=== PATIENT | female | born 1980 | race Two or more races ===

== ENCOUNTER → 2019-12-27 10:06 | Outpatient (BNVA) | payer MEDICAID, SELFPAY | PROVIDERS: Visit Provider Advanced Practice Midwife | DX: Z30.42 Encounter for surveillance of injectable contraceptive (principal) | CPT/HCPCS: 99211 ==

== ENCOUNTER 2020-01-30 13:31 | Outpatient (REF) | payer MEDICAID, SELFPAY | END 2020-01-30 13:32 | disposition home or self-care (01) | LOC: HO.LAB 13:31 | PROVIDERS: PCP Internal Medicine; Visit Provider Internal Medicine | DX: Z20.828 Contact with and (suspected) exposure to other viral communicable diseases (principal) | CPT/HCPCS: C9803; U0003 ==

== ENCOUNTER 2020-04-16 08:49 | Outpatient (REF) | payer MEDICAID, SELFPAY | END 2020-04-16 08:50 | disposition home or self-care (01) | LOC: HO.LAB 08:49 | PROVIDERS: Visit Provider Internal Medicine | DX: Z20.822 Contact with and (suspected) exposure to COVID-19 (principal) | CPT/HCPCS: 36415; C9803; U0003; U0005 ==

== ENCOUNTER 2020-05-31 12:44 | Outpatient (REF) | payer MEDICAID, SELFPAY ==
[2020-05-31 13:53] LABS: COVID-19 Test Negative (Negative)
== END 2020-05-31 12:45 | disposition home or self-care (01) ==
LOC: HO.LAB 12:44
PROVIDERS: Visit Provider Internal Medicine
DX: Z20.822 Contact with and (suspected) exposure to COVID-19 (principal)
CPT/HCPCS: 36415; 87635; C9803

== ENCOUNTER → 2020-06-25 11:23 | Outpatient (BNVA) | payer MEDICAID, SELFPAY | PROVIDERS: Visit Provider Advanced Practice Midwife ==

== ENCOUNTER → 2020-06-27 09:03 | Outpatient (BNVA) | payer MEDICAID, SELFPAY | PROVIDERS: Visit Provider Advanced Practice Midwife | DX: Z30.42 Encounter for surveillance of injectable contraceptive (principal) | CPT/HCPCS: 96372; 99211; J1050 ==

== ENCOUNTER 2020-08-09 10:42 | Outpatient (REF) | payer MEDICAID, SELFPAY ==
--- NOTE | ~2020-08-09 | MM_ITS ---
EXAMINATION: MM SCREENING DIGITAL BREAST TOMOSYNTHESIS, BILATERAL CLINICAL INFORMATION: Screening. Asymptomatic. Age 40. No prior breast imaging. Family history breast cancer, paternal grandmother. The lifetime risk of breast cancer based on the Tyrer-Cuzick Model is 10%. COMPARISON: None (current study represents initial baseline exam). TECHNIQUE: Digital breast tomosynthesis is performed in both the craniocaudal and mediolateral oblique views along with computer-aided detection (CAD). Synthesized 2D images are generated from the tomosynthesis. FINDINGS: The breasts are heterogeneously dense, which may obscure small masses (ACR BI-RADS breast composition Category c). There are no significant masses, abnormal calcifications, or other abnormalities. There is incidental low left axillary tail node. The skin contours are smooth. MM/MM tomosynthesis screening BI IMPRESSION: No mammographic evidence of malignancy. ASSESSMENT: BI-RADS 2: Benign RECOMMENDATION: Routine annual mammography screening. This patient's information was entered into a reminder system with a target due date for their next mammogram.
== END 2020-08-09 10:43 | disposition home or self-care (01) ==
LOC: HO.MAMMO 10:42
PROVIDERS: PCP Internal Medicine; Visit Provider Advanced Practice Midwife
DX: Z12.31 Encounter for screening mammogram for malignant neoplasm of breast (principal)
CPT/HCPCS: 77063; 77067

== ENCOUNTER → 2020-11-07 15:29 | Outpatient (BNVA) | payer MEDICAID, SELFPAY | PROVIDERS: PCP Internal Medicine; Visit Provider Advanced Practice Midwife ==

== ENCOUNTER 2020-12-18 10:11 | Outpatient (REF) | payer MEDICAID, SELFPAY ==
--- NOTE | ~2020-12-18 | US_ITS ---
EXAMINATION: US ABDOMEN COMPLETE CLINICAL INFORMATION: Abdominal pain. COMPARISON: None TECHNIQUE: Real-time imaging of the abdominal viscera. FINDINGS: PANCREAS: Normal. ABDOMINAL AORTA: The proximal, mid, and distal segments are normal in caliber. INFERIOR VENA CAVA: Visualized portions are normal. LIVER: The liver is normal in size. The liver contour is normal. Overall increase in echogenicity. Most consistent with fatty change. No focal hepatic lesion. There is no intrahepatic biliary duct dilatation seen. GALLBLADDER: Normal. The gallbladder is physiologically distended without evidence of stones, sludge, polyps, wall thickening or pericholecystic fluid. COMMON BILE DUCT: Normal in caliber measuring 0.3 cm in diameter. RIGHT KIDNEY: Normal. No hydronephrosis. No renal calculi or focal parenchymal lesions. The kidney measures 10.7 cm in maximum dimension. LEFT KIDNEY: Normal. No hydronephrosis. No renal calculi or focal parenchymal lesions. The kidney measures 10.5 cm in maximum dimension. SPLEEN: Normal. The spleen measures 8.8 cm in maximum dimension. FREE FLUID: None. US/US abdomen complete IMPRESSION: No evidence for cholelithiasis or cholecystitis. There is no free fluid. Liver is overall increased echogenicity most consistent with fatty change
== END 2020-12-18 10:12 | disposition home or self-care (01) ==
LOC: HO.US 10:11
PROVIDERS: PCP Internal Medicine; Visit Provider Internal Medicine
DX: R10.9 Unspecified abdominal pain (principal)
CPT/HCPCS: 76700

== ENCOUNTER 2021-05-10 13:16 | Outpatient (REF) | payer MEDICAID, SELFPAY ==
[2021-05-10 14:18] LABS: COVID-19 Test Negative (Negative)
== END 2021-05-10 13:17 | disposition home or self-care (01) ==
LOC: HO.LAB 13:16
PROVIDERS: PCP Internal Medicine; Visit Provider Internal Medicine
DX: Z20.822 Contact with and (suspected) exposure to COVID-19 (principal)
CPT/HCPCS: 87635; C9803

== ENCOUNTER 2021-11-12 13:38 | Outpatient (REF) | payer MEDICAID, SELFPAY ==
[2021-11-13 05:46] LABS: CT PCR NOT DETECTED (Not Detect.); NG PCR NOT DETECTED (Not Detect.)
[2021-11-13 10:15] LABS: BV Int Neg Control Negative (Negative); BV Int Pos Control Positive (Positive)
[2021-11-19 04:46] LABS: HPV 16 RNA DETECTED (NOT DETECTED); HPV mRNA E6/E7 rflx Detected (Not Detected)
== END 2021-11-12 13:39 | disposition home or self-care (01) ==
LOC: HO.LNP 13:38
PROVIDERS: Visit Provider Advanced Practice Midwife
DX: Z01.419 Encounter for gynecological examination (general) (routine) without abnormal findings (principal); Z11.51 Encounter for screening for human papillomavirus (HPV)
CPT/HCPCS: 87480; 87491; 87510; 87591; 87624; 87625; 87660; 88142

== ENCOUNTER → 2021-12-05 09:43 | Outpatient (BNVA) | payer MEDICAID, SELFPAY | PROVIDERS: PCP Internal Medicine; Visit Provider Advanced Practice Midwife | DX: Z30.42 Encounter for surveillance of injectable contraceptive (principal) | CPT/HCPCS: 96372; 99211 ==

== ENCOUNTER 2022-01-31 10:59 | Outpatient (REF) | payer MEDICAID, SELFPAY ==
--- NOTE | ~2022-01-31 | XR_ITS ---
EXAMINATION: XR CHEST CLINICAL INFORMATION: Cough for 4 months. COMPARISON: None TECHNIQUE: 2 views of the chest were obtained. FINDINGS: No hyperinflation. No coarsening bronchiolar markings. There is no lobar or segmental airspace consolidation or effusion. The costophrenic sulci are clear. Small density overlying the anterior medial right first rib may be artifact from costochondral junction and bronchovascular markings. Recommend follow-up frontal view chest with additional apical lordotic view to exclude pulmonary parenchymal opacity. The heart is normal in size. The vascularity is normal. The hilar and mediastinal contours and visualized bony structures are unremarkable. XR/XR chest 2V IMPRESSION: -Small density overlying the anterior medial right first rib possibly artifact from superimposition vascular markings and costochondral junction. Recommend follow-up frontal view chest with additional apical lordotic view to exclude pulmonary parenchymal opacity. -No airspace consolidation or effusion. -No hyperinflation or coarsening bronchiolar markings.
== END 2022-01-31 11:00 | disposition home or self-care (01) ==
LOC: HO.XRAY 10:59
PROVIDERS: Absent Provider Internal Medicine; PCP Internal Medicine; Visit Provider Registered Nurse
DX: R05.3 Chronic cough (principal); F17.210 Nicotine dependence, cigarettes, uncomplicated
CPT/HCPCS: 71046

== ENCOUNTER 2022-02-26 09:29 | Emergency (ER) | payer MEDICAID, SELFPAY ==
--- NOTE | ~2022-02-26 | XR_ITS ---
EXAMINATION: XR CHEST CLINICAL INFORMATION: Cough for greater than 4 months COMPARISON: None TECHNIQUE: 2 views of the chest were obtained. FINDINGS: The heart and pulmonary vessels appear normal. No infiltrates, effusions or suspicious lung masses are seen. Previously seen density at the tip of the right first rib is less apparent on the current study and was probably secondary to superimposition of structures. A similar density is seen at the anterior aspect of the sixth left rib. XR/XR chest 2V IMPRESSION: No acute intrathoracic disease.
[2022-02-26 09:32] VITALS: BP 118/75; PULSE 84; RESP 18; TEMP 36.6; O2SAT 97; BMI 29.9
--- NOTE | 2022-02-26 09:53 | PC.NURSE ---
patient a/ox4 . benito . heart rate regular at 84 beats per minuet . breathing even and unlabored . lungs diminished throughout , very little air movement in lower lobes. patient has history of cigarette smoking . dry non- productive cough . patient reports for 4 months . skin pink warm and dry . abdomen soft , positive bowel sounds in all four quadrants . patient aware of plan of care .
--- NOTE | 2022-02-26 10:07 | ED_ITS ---
HPI - URI/Sore Throat General Chief Complaint: Upper Respiratory Symptoms Stated Complaint: cough x4 months Time Seen by Provider: 02/26/22 09:41 Source: patient and family Mode of arrival: ambulatory Limitations: no limitations History of Present Illness HPI Narrative: 41-year-old female with a history of half a pack per day for roughly 20 years presents emergency department with complaints of a 4 month cough, shortness of breath, and intermittent sore throat. She denies any illness causing the onset of symptoms. She states she was diagnosed with COVID-19 using a home test roughly 1 week ago in which time her cough lessened. She denies any sputum production MD elicited complaint: cough and sore throat Related Data Previous Rx's Medication Instructions Recorded levonorgestrel 1.5 mg tablet (Plan 1.5 mg PO ONCE #1 tab 11/12/21 B One-Step) medroxyprogesterone 150 mg/mL 150 mg IM Q12W #1 mL 11/12/21 intramuscular suspension (Depo-Provera) albuterol sulfate 90 mcg/actuation 1 inh inhalation QID PRN shortness 02/26/22 aerosol inhaler of breath or wheezing #8.5 grams amoxicillin 875 mg-potassium 1 tab PO BID 5 days #10 tabs 02/26/22 clavulanate 125 mg tablet benzonatate 100 mg capsule 100 mg PO TID PRN cough #14 caps 02/26/22 Allergies Allergy/AdvReac Type Severity Reaction Status Date / Time No Known Allergies Allergy Verified 02/26/22 09:36 [No Known Allergies*] [facility] Past Medical History Medical History Herpes Herpes Surgical History No history of previous surgery No history of previous surgery Family History Family History Father Asthma Mother Diabetes mellitus Maternal Grandmother Asthma Paternal Grandmother Breast cancer Paternal Aunt Asthma Father Asthma Mother Diabetes mellitus Maternal Grandmother Asthma Paternal Grandmother Breast cancer Paternal Aunt Asthma Social History Social History (Updated 11/12/21 @ 13:09 by DIANA Dela Cruz) Alcohol intake: never Patient Tobacco Use Status: Current everyday Tobacco user Cigarettes Per Day: 9 Smoked in Last 30 Days: Yes Substance Use Type: Crack/Cocaine Advance Directives: No Advance Directives Information Provided: No Patient : No Gender identity: Female Physical Exam Vital Signs: Vital Signs: Last Vital Signs Temp 97.8 F 02/26/22 09:32 Pulse 84 02/26/22 09:32 Resp 18 02/26/22 09:32 BP 118/75 02/26/22 09:32 Pulse Ox 97 02/26/22 09:32 O2 Del Method 02/26/22 09:32 BMI result Body Mass Index 29.9 Course Course Course Narrative: 1000: Plan to rule out influenza, COVID, and strep. 1050: Serology negative for COVID, influenza a/B, and strep. Chest x-ray negative for acute intrathoracic disease. Medical Decision Making Medical Decision Making [facility] Narrative: 41-year-old female with a history of half a pack per day for roughly 20 years presents emergency department with complaints of a 4 month cough, shortness of breath, and intermittent sore throat. Lung sounds diminished to auscultation, A&O x4, and may be equally with good strength. Serology negative for influenza, COVID, and strep. Chest x-ray negative for intrathoracic disease. History, physical, and diagnostics consistent with bronchitis. Low suspicion for ACS, PE, pneumonia, sepsis. Patient is safe for discharge at this time with plan to manage symptoms the [id number] Tylenol, Motrin, and/or cough/cold medication for relief of symptoms. Plan to for 5 day course of Augmentin and benzonatate capsules for relief of symptoms. HPI, PE, diagnostics, and plan discussed with patient and family with no unanswered questions at this time. Patient educated to return to the emergency department with chest pain, increased shortness of breath, worsening cough, fever despite taking antipyretics, or any other concerning emergent symptoms. Recommended to follow-up with her primary care provider for further treatment and management. *Refer to Course for additional information on consultations, diagnostic interpretation, consultations, emergency department stay, conversations with patient and family, shared decision making with patient, and more information on medical decision making* Lab Data Labs: Lab Results 02/26/22 02/26/22 02/26/22 Range/Units 10:06 10:06 10:10 COVID-19 (JAVIER) Negative (Negative) COVID-19 Clin Com See Note Influenza Type A (CHAU) Negative (Negative) Influenza Type B ([facility]AU) Negative (Negative) Influenza A & B Note See Note S. pyogenes GrpA [facility] Negative (Negative) Discharge Plan Discharge Clinical Impression: Bronchitis Patient Disposition: Home, Self-Care Instructions: Acute Bronchitis (ED), How to Use a Metered-Dose Inhaler (ED), How to Stop Smoking (ED) Additional Instructions: Your throat and nasal swabs are negative for influenza, COVID, strep throat. Your chest x-ray is negative for pneumonia. Your history, physical exam, and diagnostic exams are consistent with chronic bronchitis is you would have cough for greater than 4 weeks. Plan is for a 5 day course of Augmentin, benzonatate capsules for cough, and a rescue inhaler for shortness of breath. Please use these medications as prescribed. You are safe for discharge at this time with plan to manage symptoms the [id number] Tylenol, Motrin, and/or cough/cold medication for relief of symptoms. Plan to for 5 day course of Augmentin and benzonatate capsules for relief of symptoms. Please return to the emergency department with chest pain, increased shortness of breath, worsening cough, fever despite taking antipyretics, or any other concerning emergent symptoms. Recommended to follow- up with her primary care provider for further treatment and management. Prescriptions: New benzonatate 100 mg capsule 100 mg PO TID PRN (Reason: cough) Qty: 14 0RF amoxicillin-pot clavulanate 875-125 mg tablet 1 tab PO BID 5 Days Qty: 10 0RF albuterol sulfate 90 mcg/actuation HFA aerosol inhaler 1 inh inhalation QID PRN (Reason: shortness of breath or wheezing) Qty: 8.5 0RF No Action levonorgestrel [Plan B One-Step] 1.5 mg tablet 1.5 mg PO ONCE Qty: 1 4RF medroxyprogesterone [Depo-Provera] 150 mg/mL suspension 150 mg IM Q12W Qty: 1 5RF Referrals: [facility] [place] Pulmonology Services [Provider Group] Lupis Aguilar MD [Primary Care Provider] - Stand Alone Forms: Work/School Release Print Language: Chinese
[2022-02-26 10:31] LABS: IDNOW Serial# 6674DD1D; Strep A Nucleic Acid Negative (Negative)
[2022-02-26 10:34] LABS: COVID-19 Test Negative (Negative); IDNOW Serial# 16C4AD1C; IDNOW Serial# BCCEAD1C; Influenza A Negative (Negative); Influenza B2 Negative (Negative)
--- NOTE | 2022-02-26 11:10 | PC.NURSE ---
Patient a/ox4 . VSS . went over discharge instructions as ordered by provider . patient given contact information for follow up with pulmonology . patient to return if symptoms worsen . no questions at this time .
== END 2022-02-26 11:13 | disposition home or self-care (01) ==
PROVIDERS: Nurse Practitioner Family; Emergency Provider Student in an Organized Health Care Education/Training Program; PCP Internal Medicine
DX: R05.9 Cough, unspecified (principal); F17.210 Nicotine dependence, cigarettes, uncomplicated; Z71.6 Tobacco abuse counseling; Z20.822 Contact with and (suspected) exposure to COVID-19; Z20.828 Contact with and (suspected) exposure to other viral communicable diseases
CPT/HCPCS: 36415; 71046; 87502; 87635; 87651; 99283; 99284

== ENCOUNTER → 2022-03-04 12:40 | Outpatient (BNVA) | payer MEDICAID, SELFPAY | PROVIDERS: PCP Internal Medicine; Visit Provider Advanced Practice Midwife | DX: Z30.42 Encounter for surveillance of injectable contraceptive (principal) | CPT/HCPCS: 96372; 99211 ==

== ENCOUNTER 2022-08-26 10:12 | Outpatient (AMB) | payer MEDICAID, SELFPAY ==
--- NOTE | 2022-08-26 10:14 | MHC.OFFVIS ---
Intake Vital Signs 08/26/22 10:15 Height 5 ft 2 in Weight 159 lb BMI 29.1 BP 110/74 Intake Visit Reasons: STD Testing Intake Note: The patient agreed to use of a emergency medical service manager during this encounter. Scribed for RICK Rose by Jeana Alexis emergency medical service manager, on 08/26/2022 at 10:38 am EST. Patent Leather Sorter: Patent Leather Sorter Present (Isamar) Allergies No Known Allergies [No Known Allergies*] Allergy (Verified 08/26/22 10:15) HPI HPI Comments History of Present Illness Details She is here today for STD testing with complains of vaginal itching and burning for the past 2 days. Denies vaginal discharge and any new soaps or detergents. New intimate partner. Denies diabetes and increase sugar intake. UTD with mammogram. [facility] Surgical History No history of previous surgery No history of previous surgery Family History Father Asthma Mother Diabetes mellitus Maternal Grandmother Asthma Paternal Grandmother Breast cancer Paternal Aunt Asthma Father Asthma Mother Diabetes mellitus Maternal Grandmother Asthma Paternal Grandmother Breast cancer Paternal Aunt Asthma Social History Alcohol intake: never Patient Tobacco Use Status: Current everyday Tobacco user Cigarettes Per Day: 9 Substance Use Type: Crack/Cocaine Gender identity: Female Female Reproductive History Menstrual Age of Menarche: 12 Physical Exam Vital Signs: Last Vital Signs BP 110/74 08/26/22 10:15 BMI result Body Mass Index 29.1 Const General: cooperative, healthy appearing, comfortable, no acute distress, well developed, alert, awake and Physically active Other: labial erythema General: Yes bladder normal to palpation External Female Exam: normal external appearance and normal appearance of the urethra Speculum Exam - Vagina: normal appearance of the vagina, normal palpation and abnormal vaginal discharge yellow (clumpy) Speculum Exam - Cervix: normal appearance of the cervix and normal palpation Bimanual exam- vagina & uterus: normal bimanual exam, normal palpation, bladder normal to palpation and normal palpation Bimanual Exam- Adnexa, other: normal adnexae and no masses Assessment & Plan Assessment & Plan (1) Potential exposure to STD: Code(s): Z20.2 - Contact with and (suspected) exposure to infections with a predominantly sexual mode of transmission Plan: Discussed: BV testing and GC/CT panel done today. Agree's to STD bloodwork. Await results and treat accordingly. Advised to clean area with water. No shaving, apply a cool cloth and wear cotton underwear. No intimacy until symptoms are resolved. Apply topical cream externally as directed. RX sent to pharmacy. Encouraged patient to sign up for patient portal. AG in 10/2022. All of her questions and concerns were addressed to the best of my ability and shared decision making. She is agreeable to plan of care. (2) Vaginal itching: Code(s): N89.8 - Other specified noninflammatory disorders of vagina Orders: Orders Hepatitis B Core Antibody Today Z20.2 - Contact with and (suspected) exposure to infections with a predominantly sexual mode of transmission Hepatitis C Antibody Today Z20.2 - Contact with and (suspected) exposure to infections with a predominantly sexual mode of transmission HIV Ab/Ag Today Z20.2 - Contact with and (suspected) exposure to infections with a predominantly sexual mode of transmission Syphilis Screen Today Z20.2 - Contact with and (suspected) exposure to infections with a predominantly sexual mode of transmission Bacterial Vaginosis Panel Today N89.8 - Other specified noninflammatory disorders of vagina, Z20.2 - Contact with and (suspected) exposure to infections with a predominantly sexual mode of transmission CT NG by PCR Today N89.8 - Other specified noninflammatory disorders of vagina, Z20.2 - Contact with and (suspected) exposure to infections with a predominantly sexual mode of transmission Medications: New fluconazole (Diflucan) 150 mg PO ONCE PRN 1 tab 0RF personal 1 day clotrimazole-betamethasone 1-0.05 % 1 appl topical BID PRN 45 grams 0RF itching 7 days valacyclovir (Valtrex) take with onset on of symptoms, take for three days, may repeat dosing per episode prn 500 mg PO BID 30 tabs 1RF Coding Level of Care Code Est Pt Level 3 (96489) Diagnoses Potential exposure to STD Z20.2 Vaginal itching N89.8
[2022-08-26 10:15] VITALS: BP 110/74; BMI 29.1
== END 2022-08-26 10:43 | disposition home or self-care (01) ==
LOC: HO.HWS 10:12
PROVIDERS: PCP Internal Medicine; Visit Provider Advanced Practice Midwife
DX: Z20.2 Contact with and (suspected) exposure to infections with a predominantly sexual mode of transmission (principal); N89.8 Other specified noninflammatory disorders of vagina
CPT/HCPCS: 99213

== ENCOUNTER 2022-08-26 10:12 | Outpatient (REF) | payer MEDICAID, SELFPAY ==
[2022-08-27 12:01] LABS: CT PCR NOT DETECTED (Not Detect.); NG PCR NOT DETECTED (Not Detect.)
[2022-08-27 13:31] LABS: BV Int Neg Control Negative (Negative); BV Int Pos Control Positive (Positive)
== END 2022-08-26 10:13 | disposition home or self-care (01) ==
LOC: HO.LAB 10:12
PROVIDERS: PCP Internal Medicine; Visit Provider Advanced Practice Midwife
DX: Z20.2 Contact with and (suspected) exposure to infections with a predominantly sexual mode of transmission (principal); N89.8 Other specified noninflammatory disorders of vagina
CPT/HCPCS: 0353U; 87480; 87510; 87660; 99213

== ENCOUNTER 2022-08-26 10:46 | Outpatient (REF) | payer MEDICAID, SELFPAY | END 2022-08-26 10:47 | disposition home or self-care (01) | LOC: HO.LNP 10:46 | PROVIDERS: Visit Provider Advanced Practice Midwife | DX: Z13.89 Encounter for screening for other disorder (principal) ==

== ENCOUNTER 2023-02-16 05:18 | Emergency (ER) | payer MEDICAID, SELFPAY ==
--- NOTE | 2023-02-16 | ECG_ITS ---
Test Reason : SOB Blood Pressure : / mmHG Vent. Rate : 106 BPM Atrial Rate : 106 BPM P-R Int : 124 ms QRS Dur : 084 ms QT Int : 314 ms P-R-T Axes : 051 053 030 degrees QTc Int : 417 ms Sinus tachycardia Otherwise normal ECG No previous ECGs available Referred By: Generic ED Physician Electronically Signed By:JERRELL AHUMADA
[2023-02-16 05:22] VITALS: BP 139/85; BP 159/92; PULSE 116; PULSE 120; RESP 17; TEMP 36.9; O2SAT 98; BMI 28.7
[2023-02-16 07:14] LABS: MANUAL DIFF FLAG NO
[2023-02-16 07:20] LABS: Basophils Percent Auto 0.2 % (0-2); Eosinophils Absolute Auto 0.1 X10*3/uL (0.0-0.4); Eosinophils Percent Auto 0.5 % (0-4); Hematocrit 41.1 % (37.0-47.0); Imm Gran Abs Auto 0.06 X10*3/uL (0.00-0.03); Imm Gran Pct Auto 0.4 % (0.0-0.4); Lymphocytes Absolute Auto 1.9 X10*3/uL (1.2-4.9); Lymphocytes Percent Auto 13.5 % (20-40); Mean Corpuscular HGB Conc 34.1 g/dl (31.0-35.0); Mean Corpuscular Hemoglobin 31.1 pg (27.0-33.0); Mean Corpuscular Volume 91.3 fL (80.0-98.0); Mean Platelet Volume 9.4 fL (9.4-12.3); Monocytes Absolute Auto 1.2 X10*3/uL (0.1-1.2); Monocytes Percent Auto 8.7 % (2-11); Neutrophils Absolute Auto 10.8 x10*3/uL (2.0-8.3); Neutrophils Percent Auto 76.7 % (45-73); Platelet Count 279 X10*3/uL (160-400); Red Cell Distribution Width 13.2 % (11.0-16.0); White Blood Count 14.1 X10*3/uL (4.8-10.8)
[2023-02-16 07:32] LABS: Alanine Aminotransferase 64 U/L (0-31); Albumin Level 4.3 g/dL (3.5-5.0); Alkaline Phosphatase 80 U/L (39-117); Anion Gap 16 (12-20); Aspartate Amino Transferase 193 U/L (5-31); Bilirubin Total 1.4 mg/dL (0.0-1.0); Blood Urea Nitrogen 11 mg/dL (9-16); Calcium 10.1 mg/dL (8.4-10.2); Carbon Dioxide 20 mmol/L (22-29); Chloride 106 mmol/L (96-108); Creatinine Clr Calc Pharmacy 89.3; Estimated Glomerular Filt Rate > 60; Glucose Random 103 mg/dL (60-115); Sodium 138 mmol/L (135-145); Total Protein 7.4 g/dL (6.5-8.0)
--- NOTE | 2023-02-16 12:18 | ED.GENADULT ---
HPI - General Adult General Chief complaint: Skin/Abscess/Foreign Body Stated complaint: Reaction to Cocaine Time Seen by Provider: 02/16/23 11:22 Source: patient Mode of arrival: ambulatory Limitations: no limitations History of Present Illness HPI narrative: Patient is a 42-year-old female presenting to the emergency department with complaint of bruising around her knees as well as feeling jittery after using cocaine last night. She reports that she has used cocaine in the past but has not had these symptoms. States that she snorted the cocaine last night. Also admits to regular alcohol ingestion. Denies any current chest pain, shortness of breath, palpitations. Denies headache, vision changes, dizziness, lightheadedness, syncope. MD complaint: knee bruising, jittery Onset (ago): hour(s) Location: lower extremity Treatments prior to arrival: none Related Data Home Medications Medication Instructions Recorded Confirmed gabapentin 100 mg capsule 100 - 300 mg PO BID PRN anxiety 08/26/22 mirtazapine 15 mg tablet 30 mg PO BEDTIME 08/26/22 sertraline 50 mg tablet 50 mg PO DAILY 08/26/22 Previous Rx's Medication Instructions Recorded medroxyprogesterone 150 mg/mL 150 mg IM Q12W #1 mL 11/12/21 intramuscular suspension (Depo-Provera) albuterol sulfate 90 mcg/actuation 1 inh inhalation QID PRN shortness 02/26/22 aerosol inhaler of breath or wheezing #8.5 grams clotrimazole-betamethasone 1 1 appl topical BID PRN itching 7 08/26/22 %-0.05 % topical cream days #45 grams fluconazole 150 mg tablet 150 mg PO ONCE PRN personal 1 day 08/26/22 (Diflucan) #1 tab valacyclovir 500 mg tablet 500 mg PO BID #30 tabs 08/26/22 (Valtrex) Allergies Allergy/AdvReac Type Severity Reaction Status Date / Time No Known Allergies Allergy Verified 08/26/22 10:15 [No Known Allergies*] Review of Systems Review of Systems: As per HPI. Yes all other systems are reviewed and are negative Constitutional: Constitutional: Reports as per HPI [facility] Past Medical History Surgical History No history of previous surgery No history of previous surgery Family History Family History Father Asthma Mother Diabetes mellitus Maternal Grandmother Asthma Paternal Grandmother Breast cancer Paternal Aunt Asthma Father Asthma Mother Diabetes mellitus Maternal Grandmother Asthma Paternal Grandmother Breast cancer Paternal Aunt Asthma Social History Social History Alcohol intake: never Patient Tobacco Use Status: Current everyday Tobacco user Cigarettes Per Day: 9 Substance Use Type: Crack/Cocaine Advance Directives: No Advance Directives Information Provided: No Gender identity: Female Physical Exam ED Vital Signs: Vital Signs - 24 hr 02/16/23 05:22 Temperature 98.5 F Pulse Rate 116 H Respiratory Rate 17 Blood Pressure 139/85 Pulse Oximetry 98 Oxygen Delivery Method Room Air BMI result Body Mass Index 28.7 Vital signs have been reviewed and appear to be correct. Blood pressure normal. Heart rate mildly tachycardic. Respiratory rate normal. Temperature normal. Oxygen saturation normal. Const General: cooperative, healthy appearing and no acute distress Orientation/consciousness: oriented to person, oriented to place, oriented to time and patient oriented x3 Limitations: no limitations HENMT Head: Yes normocephalic and Yes atraumatic Ears: external ears normal General nose exam: Normal external nose present Face and sinus: Yes face symmetric Mouth: oropharynx normal and moist mucous membranes Throat: Yes uvula midline Eyes Pupils: Equal, round and reactive pupils present Neck Neck: Yes normal visual inspection and Yes supple Resp Effort & Inspection: normal respiratory effort and able to speak in complete sentences Auscultation: clear to auscultation bilaterally Cardio Rate: regular rate Rhythm: regular rhythm Heart sounds: S1 normal heart sound present and S2 normal heart sound present GI Palpation (GI): Soft to palpation and nontender Auscultation: normoactive bowel sounds General: Yes no CVA tenderness Back/Spine/Pelvis Back: no CVA tenderness Skin General skin exam: elasticity normal and turgor normal Neuro General: oriented to person, oriented to place, oriented to time, patient oriented x3, moves all extremities, no focal motor deficits and CN's II-XI intact bilaterally Cranial nerves: Yes Equal, round and reactive pupils present Cognition (Neuro): normal cognition Extrem Other: small scattered areas of ecchymosis to bilateral knees in various stages of healing General: Yes full ROM, Yes no pedal edema and Yes no calf tenderness Right lower extremity: knee Details: normal ROM and knee ligament exam normal; no tenderness and no swelling Left lower extremity: knee Details: normal ROM and knee ligament exam normal; no tenderness and no swelling Psych Mental Status: mental status grossly normal Affect: normal affect Thought process: Normal thought process present Medical Decision Making Medical Decision Making [facility] Narrative: Patient is a 42-year-old female presenting to the emergency department with complaint of bruising around her knees as well as feeling jittery after using cocaine last night. On exam patient is awake, A+Ox3, mildly tachycardic, VS otherwise WNL, afebrile, normal neurological exam without focal deficits, physical exam findings as above. Given reported symptoms and physical exam findings, initial differential includes bilateral knee contusions, acute cocaine intoxication. Labs notable for mild leukocytosis, elevated LFTs and bilirubin, likely related to chronic alcohol use. Patient denies any abdominal pain, nausea, vomiting, diarrhea or constipation. EKG shows sinus tachycardia. Plan was to obtain urinalysis, urine drug screen, however, patient left the ED without completing treatment. Differential Diagnosis Differential Diagnoses: The differential diagnosis associated with the presentation includes As per [facility] Lab Data [facility] Lab Attestation statement: I reviewed the patient's lab results. As per [facility] 02/16/23 07:10 02/16/23 07:10 Labs: Lab Results 02/16/23 Range/Units 07:10 WBC 14.1 H (4.8-10.8) X10*3/uL RBC 4.50 (4.20-5.50) X10*6/uL Hgb 14.0 (12.0-16.0) g/dl Hct 41.1 (37.0-47.0) % MCV 91.3 (80.0-98.0) fL MCH 31.1 (27.0-33.0) pg MCHC 34.1 (31.0-35.0) g/dl RDW 13.2 (11.0-16.0) % Plt Count 279 (160-400) X10*3/uL MPV 9.4 (9.4-12.3) fL Immature Gran % (Auto) 0.4 (0.0-0.4) % Neut % (Auto) 76.7 H (45-73) % Lymph % (Auto) 13.5 L (20-40) % Phelps % (Auto) 8.7 (2-11) % Eos % (Auto) 0.5 (0-4) % Baso % (Auto) 0.2 (0-2) % Lymph # (Auto) 1.9 (1.2-4.9) X10*3/uL Phelps # (Auto) 1.2 (0.1-1.2) X10*3/uL Eos # (Auto) 0.1 (0.0-0.4) X10*3/uL Baso # (Auto) 0.0 (0.0-0.2) X10*3/uL Abs Immat Gran (auto) 0.06 H (0.00-0.03) X10*3/uL Absolute Neuts (auto) 10.8 H (2.0-8.3) x10*3/uL Absolute Nucleated RBC 0.000 (0.0-0.012) X10*3/uL Nucleated RBC % (auto) 0.0 (0.0-0.2) /100WBC Sodium 138 (135-145) mmol/L Potassium 4.0 (3.3-5.1) mmol/L Chloride 106 (96-108) mmol/L Carbon Dioxide 20 L (22-29) mmol/L Anion Gap 16 (12-20) BUN 11 (9-16) mg/dL Creatinine 0.75 (0.5-1.4) mg/dL Estim Creat Clear Calc 89.3 Estimated GFR > 60 Random Glucose 103 (60-115) mg/dL Calcium 10.1 (8.4-10.2) mg/dL Total Bilirubin 1.4 H (0.0-1.0) mg/dL AST 193 H (5-31) U/L ALT 64 H (0-31) U/L Alkaline Phosphatase 80 (39-117) U/L Total Protein 7.4 (6.5-8.0) g/dL Albumin 4.3 (3.5-5.0) g/dL Independent Interpretation I performed an independent interpretation of an: EKG (Sinus tachycardia, rate 106 beats per minute, normal MO and QT intervals) External Record Review External record reviewed: Inpatient record, Office record and Outpatient record Discharge Plan Discharge Clinical Impression: Contusion of knee, left, Contusion of knee, right, Tachycardia Patient Disposition: Left W/O Completing Treatment Prescriptions: No Action albuterol sulfate 90 mcg/actuation HFA aerosol inhaler 1 inh inhalation QID PRN (Reason: shortness of breath or wheezing) Qty: 8.5 0RF medroxyprogesterone [Depo-Provera] 150 mg/mL suspension 150 mg IM Q12W Qty: 1 5RF sertraline 50 mg tablet 50 mg PO DAILY gabapentin 100 mg capsule 100 - 300 mg PO BID PRN (Reason: anxiety) mirtazapine 15 mg tablet 30 mg PO BEDTIME fluconazole [Diflucan] 150 mg tablet 150 mg PO ONCE PRN (Reason: personal) 1 Days Qty: 1 0RF clotrimazole-betamethasone 1-0.05 % cream 1 appl topical BID PRN (Reason: itching) 7 Days Qty: 45 0RF valacyclovir [Valtrex] 500 mg tablet 500 mg PO BID Qty: 30 1RF Rx Instructions: take with onset on of symptoms, take for three days, may repeat dosing per episode prn
== END 2023-02-16 12:57 | disposition left against medical advice (07) ==
PROVIDERS: Emergency Provider Emergency Medicine; PCP Internal Medicine
DX: S80.02XA Contusion of left knee, initial encounter (principal); S80.01XA Contusion of right knee, initial encounter; X58.XXXA Exposure to other specified factors, initial encounter; R00.0 Tachycardia, unspecified; F14.90 Cocaine use, unspecified, uncomplicated; Y93.9 Activity, unspecified; Y92.9 Unspecified place or not applicable; Y99.9 Unspecified external cause status; F17.210 Nicotine dependence, cigarettes, uncomplicated; Z79.899 Other long term (current) drug therapy
CPT/HCPCS: 36415; 80053; 85025; 93005; 99283; 99284

== ENCOUNTER → 2023-02-16 06:18 | Outpatient (BNV) | payer MEDICAID, SELFPAY | PROVIDERS: Emergency Provider Emergency Medicine; PCP Internal Medicine; Visit Provider Internal Medicine | DX: R06.02 Shortness of breath (principal) | CPT/HCPCS: 93010 ==

== ENCOUNTER 2024-12-27 09:26 | Outpatient (REF) | payer MEDICAID, SELFPAY ==
[2024-12-27 11:10] LABS: MANUAL DIFF FLAG NO
[2024-12-27 11:21] LABS: Hematocrit 47.6 % (37.0-47.0); Hemoglobin 15.2 g/dl (12.0-16.0); Imm Gran Abs Auto 0.05 X10*3/uL (0.00-0.03); Imm Gran Pct Auto 0.5 % (0.0-0.4); Lymphocytes Absolute Auto 2.2 X10*3/uL (1.2-4.9); Mean Corpuscular HGB Conc 31.9 g/dl (31.0-35.0); Mean Corpuscular Hemoglobin 31.6 pg (27.0-33.0); Mean Corpuscular Volume 99.0 fL (80.0-98.0); NRBC Abs Auto 0.000 X10*3/uL (0.0-0.012); NRBC Pct Auto 0.0 /100WBC (0.0-0.2); Platelet Count 264 X10*3/uL (160-400); Red Blood Count 4.81 X10*6/uL (4.20-5.50); White Blood Count 11.0 X10*3/uL (4.8-10.8)
[2024-12-27 11:54] LABS: Syphilis Screen Nonreactive (Nonreactive)
[2024-12-27 11:55] LABS: HBS Num1 0.13 mIU/mL (0-7.99); HBc Num1 0.08 S/CO (0.00-0.79); HBsAGNum1 0.43 S/CO (0.00-0.99); HIV Num 1 0.06 S/CO (0.00-0.99); Hepatitis A Antibody IgM 0.16 Index (0-0.79); Hepatitis B Surface Antigen Negative (Negative); ~HepC Num1 0.13 S/CO (0.00-0.79); ~Hepatitis A Antibody IgM Nonreactive (Nonreactive); ~Hepatitis B Surface Antibody NONREACTIVE (Nonreactive); ~Hepatitis C Antibody Nonreactive (Nonreactive)
[2024-12-27 12:01] LABS: Alanine Aminotransferase 28 U/L (0-31); Albumin Level 4.4 g/dL (3.5-5.0); Alkaline Phosphatase 91 U/L (39-117); Anion Gap 12 (12-20); Aspartate Amino Transferase 33 U/L (5-31); Blood Urea Nitrogen 10 mg/dL (9-16); Calcium 9.5 mg/dL (8.4-10.2); Carbon Dioxide 25 mmol/L (22-29); Chloride 106 mmol/L (96-108); Cholesterol 176 mg/dL (<200); Estimated Glomerular Filt Rate > 60; HDL Cholesterol 44 mg/dL (>40); Potassium 4.5 mmol/L (3.3-5.1); Sodium 138 mmol/L (135-145); Total Protein 7.2 g/dL (6.5-8.0); Triglycerides 206 mg/dL (<150)
[2024-12-27 12:28] LABS: Reflex LDLD? No
[2024-12-27 13:10] LABS: CT PCR Urine NOT DETECTED (Not Detect.); NG PCR Urine NOT DETECTED (Not Detect.)
[2024-12-30 09:34] LABS: TS Negative Control Passed; TS Panel A 0; TS Panel B 0; TS Positive Control Passed; TSpotTB Negative (Negative)
== END 2024-12-27 09:27 | disposition home or self-care (01) ==
LOC: HO.HHCL 09:26
PROVIDERS: PCP Internal Medicine; Visit Provider Internal Medicine
DX: Z11.4 Encounter for screening for human immunodeficiency virus [HIV] (principal); Z20.2 Contact with and (suspected) exposure to infections with a predominantly sexual mode of transmission; Z20.6 Contact with and (suspected) exposure to human immunodeficiency virus [HIV]; Z11.59 Encounter for screening for other viral diseases; F17.210 Nicotine dependence, cigarettes, uncomplicated; B97.7 Papillomavirus as the cause of diseases classified elsewhere; F33.1 Major depressive disorder, recurrent, moderate; F11.20 Opioid dependence, uncomplicated
CPT/HCPCS: 36415; 80053; 80061; 82306; 84443; 85025; 86481; 86704; 86706; 86709; 86780; 86803; 87340; 87389; 87491; 87591